=== PATIENT | female | born 1985 | race Caucasian/White ===

== ENCOUNTER 2020-08-11 01:24 | Emergency (ER) | payer SELFPAY ==
[~2020-08-11] VITALS: Ht 167.6 cm; Wt 68.0 kg
--- NOTE | 2020-08-11 01:30 | NUR ---
PT BIBRA C/O MULTIPLE ANIMAL BITES AND SCRATCHES ON BILATERAL UPPER EXTREMITIES. PT AAOX4 BREATHING EVENLY AND UNLABORED. PT STATES "I DONT KNOW WHAT KIND OF ANIMAL IT WAS; IT HAD A TAIL". UPON ASSESSMENT PT HAS SOME SWELLING ON BOTH FOREARMS. NO ACTIVE BLEEDING. PT IS WARM AND DRY. EMT AT BEDSIDE FOR WOUND CARE. PT ATTACHED TO MONITOR AND POX. PT GIVEN BLANKET AND CALLLIGHT WITHIN REACH.
[2020-08-11] MEDS ORDERED: AMOX-430 PO (01:36)
[2020-08-11] MEDS ORDERED: HYDROCODONE/APAP 5/325MG TABLET ONE (01:42)
--- NOTE | 2020-08-11 01:43 | NUR ---
Patient discharged to home in stable condition. Written and verbal after care instructions given. Patient verbalizes understanding of instruction. PT ambulatory with a steady gait. PT CALLING AWAITING COAL LOADER FROM [facility]
[2020-08-11] MEDS ORDERED: HYDROCODONE/APAP 5/325MG TABLET PO ONE (02:00)
[2020-08-11 03:30] VITALS: BP 112/72
== END 2020-08-11 03:30 | disposition home or self-care (01) ==
LOC: ER 01:27
DX: S51.832A Puncture wound without foreign body of left forearm, initial encounter (principal); S51.831A Puncture wound without foreign body of right forearm, initial encounter; W64.XXXA Exposure to other animate mechanical forces, initial encounter; Y93.01 Activity, walking, marching and hiking; Y92.89 Other specified places as the place of occurrence of the external cause; Y99.8 Other external cause status